=== PATIENT | female | born 1955 | race Caucasian/White ===

== ENCOUNTER → 2018-10-25 14:29 | Outpatient (CLI) | payer OTHER, MEDICAID, SELFPAY ==
--- NOTE | 2018-10-25 14:46 | XR_ITS ---
XR chest 2V HISTORY: ITS.REASON: TOBACCO USE, smoker ORDERING PHYSICIAN: Ousmane Kathleen MD PATIENT AGE: 62 years COMPARISON: 12/12/2012 FINDINGS: The cardiomediastinal silhouette and pulmonary vascularity are within normal limits. There is an irregular area of increased density in the right apex possibly related to some underlying scarring. Somewhat more prominent than when compared to the previous study. The remaining lungs are clear. No acute bony findings. IMPRESSION: 1. Slight increased density right apex which may be related to progressive scarring. Cannot exclude developing nodule in this patient with a positive smoking history. Consider chest CT for further evaluation. 2. Otherwise negative
[2018-10-25 15:04] LABS: Basophils % 0.3 % (0.1-2.0); Eosinophils # 0.1 K/mm3 (0.0-0.4); Eosinophils % 0.7 % (0.1-12.0); Hemoglobin 14.5 g/dL (12.2-16.2); Lymphocytes # 1.6 K/mm3 (0.7-4.5); Lymphocytes % 21.6 % (10-50); Mean Corpuscular HGB Conc 33.7 g/dL (31.8-35.4); Mean Corpuscular Hemoglobin 30.8 pg (27.0-31.2); Mean Corpuscular Volume 91.5 fl (81-99); Mean Platelet Volume 7.3 fl (7.4-10.4); Monocytes # 0.3 K/mm3 (0.1-1.0); Monocytes % 4.2 % (1.7-9.3); Neutrophils # 5.5 K/mm3 (1.8-7.8); Neutrophils % 73.2 % (37.0-80.0); Platelet Count 352 K/mm3 (142-424); Red Cell Distribution Width 12.7 % (11.5-17.5); White Blood Count 7.6 K/mm3 (4.8-10.8)
[2018-10-25 15:52] LABS: Anion Gap 14.2 mEq/L (5-15); Blood Urea Nitrogen 10 mg/dL (7-18); Calcium 9.2 mg/dL (8.5-10.1); Carbon Dioxide 25 mmol/L (21.0-32.0); Chloride 105 mmol/L (98-107); Creatinine,Serum 0.79 mg/dL (0.55-1.02); Estimated Glomerular Filt Rate 74 ml/min (>60); GFR (African American) 89 ML/MIN (>60); Glucose 92 mg/dL (74-106); Potassium 4.2 mmoL/L (3.5-5.1); Sodium 140 mmol/L (136-145)
== END ==
PROVIDERS: Visit Provider Orthopaedic Surgery
DX: Z01.818 Encounter for other preprocedural examination (principal); S52.572D Other intraarticular fracture of lower end of left radius, subsequent encounter for closed fracture with routine healing
CPT/HCPCS: 36415; 71046; 80048; 85025; 93005

== ENCOUNTER → 2018-11-11 13:39 | Outpatient (CLI) | payer OTHER, MEDICAID, SELFPAY ==
--- NOTE | 2018-11-11 13:49 | XR_ITS ---
XR wrist LT min 3V HISTORY follow-up fracture/ORIF ITS.REASON: sp ORIF lt wrist DOS 10/28/18 ORDERING PHYSICIAN: Ousmane Kathleen MD PATIENT AGE: 62 years Comparison: 10/28/2018 FINDINGS: The study is obtained through a cast. There is an anterior bone plate present stabilizing the radial fracture with good alignment. Fracture lines are somewhat obscured by the overlying cast. IMPRESSION: Good alignment status post ORIF distal radial fracture
== END ==
PROVIDERS: PCP Family Medicine; Visit Provider Orthopaedic Surgery
DX: S52.502A Unspecified fracture of the lower end of left radius, initial encounter for closed fracture (principal); Z48.89 Encounter for other specified surgical aftercare
CPT/HCPCS: 73110

== ENCOUNTER → 2018-11-25 12:42 | Outpatient (CLI) | payer OTHER, MEDICAID, SELFPAY ==
--- NOTE | 2018-11-25 12:47 | XR_ITS ---
XR wrist LT min 3V Ordering Physician: Ousmane Kathleen MD Patient Age: 62 years: Female HISTORY: ITS.REASON: sp ORIF LT wrist TECHNIQUE: 3 views left wrist COMPARISON : 10/19/2018 & 11/11/2018. FINDINGS . ORIF of distal radial fracture again evident. Stable position of fracture and fixation elements. . metallic plate is been applied anteriorly to the radius secured by multiple screws. Good position of fracture and fixation elements. Anatomical alignment on lateral view. Early healing suggested along the ulnar aspect of the radial fracture. Cast removed from today study. Congruent appearance to the radial articular surface. Ulna appears intact IMPRESSION: ----- Old ORIF distal radial fracture. Satisfactory position of fracture and fixation elements. Early healing.
== END ==
PROVIDERS: PCP Family Medicine; Visit Provider Orthopaedic Surgery
DX: S52.502A Unspecified fracture of the lower end of left radius, initial encounter for closed fracture (principal); Z47.89 Encounter for other orthopedic aftercare
CPT/HCPCS: 73110

== ENCOUNTER → 2018-11-29 10:48 | Outpatient (CLI) | payer OTHER, MEDICAID, SELFPAY ==
--- NOTE | 2018-11-29 10:49 | XR_ITS ---
XR DEXA axial skeleton HISTORY: ITS.REASON: evaluate for osteoporosis ORDERING PHYSICIAN: Ousmane Kathleen MD PATIENT AGE: 62 years COMPARISON: None FINDINGS: The BMD measured at the Total right femoral neck is 0.649 g/cm squared with a T score of -2.9. This is considered Osteoporotic according to the World Health Organization criteria. Fracture risk is High. Treatment is advised. IMPRESSION: Osteoporosis with high fracture risk. Suggest treatment and follow-up exam in November 2019
== END ==
PROVIDERS: PCP Family Medicine; Visit Provider Orthopaedic Surgery
DX: M81.0 Age-related osteoporosis without current pathological fracture
CPT/HCPCS: 77080

== ENCOUNTER → 2018-12-23 13:02 | Outpatient (CLI) | payer OTHER, MEDICAID, SELFPAY ==
--- NOTE | 2018-12-23 13:06 | XR_ITS ---
XR wrist LT min 3V HISTORY follow-up left wrist fracture status post ORIF ITS.REASON: sp ORIF LT wrist, dos 10/28/18 ORDERING PHYSICIAN: Ousmane Kathleen MD PATIENT AGE: 63 years Comparison: 11/25/2018 FINDINGS: Anterior bone plate remains in place stabilizing the distal radial fracture with good alignment. Fracture line still visible. IMPRESSION: Good alignment status post ORIF distal radial fracture
== END ==
PROVIDERS: PCP Family Medicine; Visit Provider Orthopaedic Surgery
DX: S52.502A Unspecified fracture of the lower end of left radius, initial encounter for closed fracture (principal); Z48.89 Encounter for other specified surgical aftercare
CPT/HCPCS: 73110

== ENCOUNTER 2019-01-21 10:30 | Outpatient (RCR) | payer OTHER, MEDICAID, SELFPAY | END 2019-01-21 10:35 | disposition home or self-care (01) | LOC: OT 10:30 | PROVIDERS: Visit Provider Orthopaedic Surgery | DX: S52.502A Unspecified fracture of the lower end of left radius, initial encounter for closed fracture (principal) | CPT/HCPCS: 97110; 97140; 97165 ==

== ENCOUNTER → 2019-02-22 12:59 | Outpatient (CLI) | payer OTHER, MEDICAID, SELFPAY ==
--- NOTE | 2019-02-22 13:04 | XR_ITS ---
XR wrist LT min 3V HISTORY follow-up ORIF/fracture ITS.REASON: sp ORIF LT wrist, dos 10/28/18 ORDERING PHYSICIAN: Ousmane Kathleen MD PATIENT AGE: 63 years Comparison: 12/23/2018 FINDINGS Anterior bone plate remains in place stabilizing distal radial fracture which is in good alignment. Fracture line is less visible. IMPRESSION: Good alignment healing distal radial fracture status post ORIF
== END ==
PROVIDERS: PCP Family Medicine; Visit Provider Orthopaedic Surgery
DX: S52.502A Unspecified fracture of the lower end of left radius, initial encounter for closed fracture (principal); Z48.89 Encounter for other specified surgical aftercare
CPT/HCPCS: 73110

== ENCOUNTER → 2019-03-16 09:21 | Outpatient (CLI) | payer OTHER, MEDICAID, SELFPAY ==
--- NOTE | 2019-03-16 09:25 | XR_ITS ---
XR shoulder LT min 2V HISTORY: ITS.REASON: left shoulder pain ORDERING PHYSICIAN: Ousmane Kathleen MD PATIENT AGE: 63 years Comparison: None FINDINGS: No fracture or dislocation. No lytic or blastic change. There is normal mineralization. The joint spaces are well-preserved. No significant degenerative/arthritic changes. No erosive changes evident. IMPRESSION: Negative, no acute finding
== END ==
PROVIDERS: PCP Nurse Practitioner Family; Visit Provider Orthopaedic Surgery
DX: M25.512 Pain in left shoulder (principal)
CPT/HCPCS: 73030

== ENCOUNTER → 2019-03-23 13:33 | Outpatient (CLI) | payer OTHER, MEDICAID, SELFPAY ==
--- NOTE | 2019-03-23 13:35 | MR_ITS ---
MR shoulder LT wo con HISTORY:Left shoulder pain, rotator cuff tear ITS.REASON: evaluate for rotator cuff tear ORDERING PHYSICIAN: Ousmane Kathleen MD PATIENT AGE: 63 years Comparison: 03/16/2019 TECHNIQUE: Standard multiplanar multiecho sequences are performed without contrast. FINDINGS: There is acromioclavicular arthropathy with subarticular cystic changes at the AC joint with no significant subacromial stenosis. There is mild tendinopathy/tendinosis of the supraspinatus tendon but no definite tear of the tendon. The infraspinatus, subscapularis, and teres minor tendons are intact. No evidence of labral tear. There is mild edema and subcutaneous cortical cystic change of the greater tuberosity region. Small amount fluid is present in the subcoracoid area. The bicipital tendon is in place. IMPRESSION: 1. No evidence of rotator cuff tear. 2. Tendinopathy/tendinosis of the supraspinatus tendon. 3. Acromioclavicular arthropathy with small amount fluid in the subcoracoid region suggesting mild bursitis
== END ==
PROVIDERS: PCP Nurse Practitioner Family; Visit Provider Orthopaedic Surgery
DX: M25.512 Pain in left shoulder (principal); G89.29 Other chronic pain
CPT/HCPCS: 73221

== ENCOUNTER 2019-05-12 10:00 | Outpatient (RCR) | payer OTHER, MEDICAID, SELFPAY ==
--- NOTE | 2019-04-18 11:12 | [facility].PTOPEV ---
PT Outpatient Evaluation Rehab PT Outpatient Evaluation Start: 04/18/19 10:11 Freq: Status: Active Protocol: Document 04/18/19 10:56 MOON (Rec: 04/18/19 11:08 MOON [id number]) Electronically Signed By Steven Fish, PT 04/18/19 10:56 Outpatient Therapy Subjective History Subjective History Pt is 63 yowf who presents with c/o pain in left shld x ~ 3-4 mos. She reports the pain began some time after she fell and fx'd her left wrist which required ORIF ~ 6 mos ago. She has no pain after the initial injury, but began to have pain several mos later. She had MRI which showed left supraspinatus tendinitis and a cortisone injection performed ~ 2 wks ago signficantly helped her symptoms. She has hx of osteoporosis and HTN. Chief Complaint Pain Symptom Type Ache,Sharp Symptoms Relieved By Rest/Positioning Symptoms Aggravated By Physical Activity Prior Functional Limitations None Current Functional Limitations Reaching,Lifting Symptom Description Intermittent,Activity Dependent Level of pain today (0-10) 0 Pain scale - at its worst (0-10) 5 Shoulder/Elbow Eval Shoulder Objective Measurements Shoulder ROM Left Shoulder Abduction Active Range of 0-110 Motion (degrees) Shoulder Abduction Passive Range of 0-110 Motion (degrees) Shoulder Flexion Active Range of Motion 0-120 (degrees) Query Text: Shoulder Flexion Passive Range of Motion 0-120 (degrees) Shoulder External Rotation Active Range 0-50 of Motion (degrees) Shoulder External Rotation Passive Range 0-50 of Motion (degrees) Shoulder MMT Shoulder Abduction Strength Grade 4 Good Shoulder Flexion Strength Grade 4 Good Shoulder External Rotation Strength 4 Good Grade Shoulder Internal Rotation Strength 4 Good Grade Shoulder Special Tests impingement sign present shoulder exam left standard Shoulder Empty Can (Supraspinatus) Test Negative Left,Negative Right Shoulder [place] Impingement Negative Right,Positive Left Test Shoulder [place] Test Negative Left,Negative Right Elbow Objective Measurements Outpatient Therapy Assessment Impairments Problems/Impairmments Impaired Range of Motion,
== END 2019-05-12 10:05 | disposition home or self-care (01) ==
LOC: PT 10:00
PROVIDERS: PCP Nurse Practitioner Family; Visit Provider Orthopaedic Surgery
DX: M25.512 Pain in left shoulder (principal); G89.29 Other chronic pain; M75.42 Impingement syndrome of left shoulder; M75.22 Bicipital tendinitis, left shoulder; M67.912 Unspecified disorder of synovium and tendon, left shoulder
CPT/HCPCS: 97010; 97014; 97035; 97110; 97140; 97163; G0283

== ENCOUNTER → 2020-12-24 12:27 | Outpatient (CLI) | payer MEDICARE, OTHER, SELFPAY | PROVIDERS: PCP Nurse Practitioner Family; Visit Provider Nurse Practitioner Family | DX: G47.30 Sleep apnea, unspecified (principal); R06.83 Snoring | CPT/HCPCS: G0399 ==

== ENCOUNTER → 2021-01-30 20:08 | Outpatient (CLI) | payer MEDICARE, OTHER, SELFPAY | PROVIDERS: PCP Nurse Practitioner Family; Visit Provider Nurse Practitioner Family | DX: G47.30 Sleep apnea, unspecified (principal); R06.83 Snoring; G47.61 Periodic limb movement disorder | CPT/HCPCS: 95810 ==